=== PATIENT | female | born 1980 | race African-American/Black ===

== ENCOUNTER → 2018-07-16 | Outpatient (CLI) | payer OTHER ==
--- NOTE | 2018-07-20 10:58 | PCVCIMAG ---
APPROVED REPORT Study performed: 07/16/2018 08:20:34 EXAM: Comprehensive 2D, Doppler, and color-flow Echocardiogram Patient Location: Echo lab Status: routine BSA: 1.79 HR: 75 bpmBP: 80/60 mmHg Rhythm: NSR Other Information Study Quality: Good Risk Factors: Cardiac Risk Factors: HTN, Hyperlipidemia, DM 2D Dimensions IVSd: 9.96 (7-11mm)LVOT Diam: 18.69 (18-24mm) LVDd: 40.96 mm PWd: 8.97 (7-11mm)Ascending Ao: 27.64 (22-36mm) LVDs: 30.38 (25-40mm) Left Atrium: 34.40 (27-40mm) Aortic Root: 26.55 mm LV Single Plane 4CH: 53.39 % LV Single Plane 2CH: 59.90 % Biplane EF: 56.1 % Volumes Left Atrial Volume (Systole) Single Plane 4CH: 46.39 mLSingle Plane 2CH: 33.29 mL LA ESV Index: 24.00 mL/m2 Aortic Valve AoV Peak Narinder.: 1.50 m/s AO Peak Gr.: 8.95 mmHgLVOT Max P.82 mmHg LVOT Max V: 1.10 m/s CIRO Vmax: 2.01 cm2 Mitral Valve E/A Ratio: 1.1 MV Decel. Time: 267.88 ms MV E Max Narinder.: 0.66 m/s MV A Narinder.: 0.58 m/s IVRT: 107.27 ms TDI E/Lateral E': 4.13E/Medial E': 5.50 Medial E' Narinder.: 0.12 m/s Lateral E' Narinder.: 0.16 m/s Pulmonary Valve PV Peak Gr.: 2.21 mmHg Pulmonary Vein P Vein S: 0.59 m/sP Vein A: 0.38 m/s P Vein D: 0.38 m/sP Vein A Dur.: 69.2 msec P Vein S/D Ratio: 1.55 Tricuspid Valve TR Peak Narinder.: 2.52 m/s TR Peak Gr.: 25.47 mmHg Left Ventricle The left ventricle is normal size. There is normal LV segmental wall motion. There is normal left ventricular wall thickness. Left ventricular systolic function is normal. The left ventricular ejection fraction is within the normal range. LVEF is 60-65%. The left ventricular diastolic function is normal. Right Ventricle The right ventricle is normal size. The right ventricular systolic function is normal. Atria The left atrium size is normal. The right atrium size is normal. Aortic Valve The aortic valve is normal in structure. No aortic regurgitation is present. There is no aortic valvular stenosis. Mitral Valve The mitral valve is normal in structure. Trace mitral regurgitation. No evidence of mitral valve stenosis. Tricuspid Valve The tricuspid valve is normal in structure. Mild tricuspid regurgitation. Pulmonary artery pressure is 33mmHg. Pulmonic Valve The pulmonary valve is normal in structure. There is no pulmonic valvular regurgitation. Great Vessels The aortic root is normal in size. IVC is normal in size and collapses >50% with inspiration. Pericardium There is no pericardial effusion. <Conclusion> The left ventricle is normal size. LVEF is 60-65%. The aortic valve is normal in structure. The mitral valve is normal in structure. Trace mitral regurgitation. The tricuspid valve is normal in structure. Mild tricuspid regurgitation. Pulmonary artery pressure is 33mmHg. The pulmonary valve is normal in structure. There is no pericardial effusion.
--- NOTE | 2018-07-20 12:44 | PCVCIMAG ---
APPROVED REPORT Imaging Protocol: Rest Tc-99m/Stress Tc-99m 1 day Study performed: 07/16/2018 09:25:48 Indication: Chest pain, Dyspnea Patient Location: Out-Patient Stress Nurse: Brianda Krause RN, Bryanna Pablo RN PA Tech:Vonda RITA DuncanMT Ht: 5 ft 6 in Wt: 152 lbs BSA: 1.78 m2 HR: 70 bpm BP: 120/74 mmHg BMI: 24.53 Rhythm: Normal Sinus Rhythm Medical History Medical History: Diabetic Noninsulin, Hyperlipidemia, HTN Medications: Propranolol, Amlodipine, Atorvastatin, Buspar Allergies: Tape, [place] Pretest Chest Pain Characteristics: No chest pain Exercise History: Physically active Meds Held (24 hrs): Propranolol Resting Data Rest SPECT myocardial perfusion imaging was performed in supine position 45 minutes following the intravenous injection of 10.8 mCi of Tc-99m Sestamibi. Time of rest injection: 0845 Date: 07/16/2018 Administration Route: IV Administration Site: Right AC Exercise Stress At peak stress, the patient was injected intravenously with 32.2mCi of Tc-99m Sestamibi. Time of stress injection: 1020 Date: 07/16/2018 Administration Route: IV Administration Site: Right AC Patient continued to exercise for 1 minute(s). Gated Stress SPECT was performed 30 minutes after stress injection. The images were gated to evaluate regional wall motion and calculate left ventricular ejection fraction. Stress Test Details Stress Test: Exercise stress testing was performed using a Dom protocol. HRMax Heart Rate (APMHR): 185 bpm Resting HR: 70 bpmTarget HR (85% APMHR): 157 bpm Max HR Achieved: 179 bpm % of APMHR: 96 Recovery HR: 101 bpm BP Resting BP: 120/74 mmHg Max BP: 148/78 mmHg Recovery BP: 113/59 mmHg BP response to stress: Normal blood pressure response to stress. ECG Resting ECG: Normal Sinus Rhythm Stress ECG: Sinus Tachycardia Maximum ST Deviation: 1.1 mm Recovery ECG: Sinus Tachycardia Clinical Reason for Termination: Fatigue, Dyspnea Stress Symptoms: Dyspnea Exercise duration: 11 min 07 sec Exercise capacity: 13.4 METs Overall Exercise Capacity for Age: Good Symptoms resolved during recovery. Stress ECG Conclusion 1. Subjectively negative for ischemia 2. Elective cardiographic C negative for ischemia 3. Satisfactory functional capacity Study Data Post stress, the left ventricular ejection was 88%.. SSS: 0 SRS: 0 SDS: 0 TID = 0.74. Perfusion There is a medium area of mildly reduced uptake in the basal and mid segment of the anterior wall which is seen on the stress images and improves on the resting images. This area thickens and moves normally and is most consistent with attenuation although ischemia cannot be excluded. Wall Motion Normal left ventricular wall motion. Nuclear Conclusion ECG Findings: negative for ischemia Clinical Findings: negative for ischemia Nuclear Findings: some improvement noted with rest but did not achieve 2 standard deviations Exercise Capacity: normal Left Ventricular Function: normal 1. Low to intermediate risk study based on suggestion of mild improved uptake at rest versus stress. Rest images did have gut normalization 2. Post exercise left ventricular ejection fraction of 80% with normal contractility <Conclusion> 1. Subjectively negative for ischemia 2. Elective cardiographic C negative for ischemia 3. Satisfactory functional capacity
== END | disposition home or self-care (01) ==
LOC: PCVCIMAG 08:18
PROVIDERS: ATTEND Internal Medicine
DX: I07.1 Rheumatic tricuspid insufficiency (principal); R07.9 Chest pain, unspecified; R06.00 Dyspnea, unspecified
CPT/HCPCS: 78452; 93017; 93306; A9500